=== PATIENT | male | born 1950 | race Caucasian/White ===

== ENCOUNTER 2023-11-10 11:46 | Inpatient (IN) | payer MEDICARE ==
[~2023-11-10] VITALS: Ht 180.3 cm; Wt 107.3 kg
[2023-11-10 12:46] LABS: BASOPHILS % (AUTO) 0.7 % (0-1); EOSINOPHILS # (AUTO) 0.1 X10'3 (0-0.9); HEMATOCRIT 43.3 % (42.0-52.0); HEMOGLOBIN 14.6 g/dl (14.0-17.9); LYMPHOCYTES # (AUTO) 1.4 X10'3 (1.1-4.8); LYMPHOCYTES % (AUTO) 23.3 % (21-51); MEAN CORPUSCULAR HEMOGLOBIN 29.9 PG (27.0-31.0); MEAN CORPUSCULAR HGB CONC 33.7 g/dL (33.0-36.5); MEAN CORPUSCULAR VOLUME 88.8 FL (78-98); MEAN PLATELET VOLUME 8.6 FL (7.4-10.4); MONOCYTES # (AUTO) 0.2 X10'3 (0-0.9); MONOCYTES % (AUTO) 3.8 % (2-12); NEUTROPHILS # (AUTO) 4.3 X10'3 (1.8-7.7); NEUTROPHILS % (AUTO) 70.2 % (42-75); PLATELET COUNT 156 X10'3 (140-440); RED BLOOD COUNT 4.88 X10'6 (4.70-6.10); RED CELL DISTRIBUTION WIDTH 13.5 % (11.5-14.5); WHITE BLOOD COUNT 6.2 X10'3 (4.5-11.0)
[2023-11-10 13:10] LABS: GLUCOSE 207 MG/DL (70-104); SODIUM 139 MMOL/L (135-145)
[2023-11-10 13:11] LABS: ALBUMIN 3.6 G/DL (3.4-5.0); ANION GAP 9 (8-16); BLOOD UREA NITROGEN 23 MG/DL (7-18); BUN/CREATININE RATIO 17.7 (10.0-20.0); CALCIUM 8.5 MG/DL (8.5-10.1); CHLORIDE 102 MMOL/L (99-107); POTASSIUM 3.6 MMOL/L (3.5-5.1); PRO BRAIN NATRIURETIC PEPTIDE 159 PG/ML (0-125); TOTAL CARBON DIOXIDE 28.4 MMOL/L (24-32); eCRCL 55 ML/MIN; eGFR 54 ML/MIN
[2023-11-10] MEDS ORDERED: IRBE150T51 PO (16:47)
[2023-11-10] MEDS ORDERED: ACYC-129 PO ×2 (16:48→16:49)
[2023-11-10] MEDS ORDERED: acetaminophen 325mg tablet PO PRN (16:50)
[2023-11-10] MEDS ORDERED: magnesium hydroxide 30ml (MOM) UD suspension PO PRN (16:50)
[2023-11-10] MEDS ORDERED: FLO0.4C PO (16:50)
[2023-11-10] MEDS ORDERED: ondansetron/PF 4mg/2ml inj IV PRN (16:50)
[2023-11-10] MEDS ORDERED: magnesium 4gm in 100ml NS 100 ML IV PRN (16:50)
[2023-11-10] MEDS ORDERED: magnesium Cl slow-release 64mg tablet PO PRN (16:50)
[2023-11-10] MEDS ORDERED: magnesium 2GM in 50ml NS 50 ML IV PRN (16:50)
[2023-11-10] MEDS ORDERED: potassium Cl 20 mEq SR tablet PO PRN ×2 (16:50)
[2023-11-10] MEDS ORDERED: mag hydrox/Alum hydrox/simeth 30ml oral suspension PO PRN (16:50)
[2023-11-10] MEDS ORDERED: nitroGLYCERIN 0.4mg SUBLingual tab SL PRN ×2 (16:50→16:55)
[2023-11-10] MEDS ORDERED: METF-900 PO (16:50)
[2023-11-10] MEDS ORDERED: morphine 2 MG/ML inj. syringe IV PRN (16:50)
[2023-11-10] MEDS ORDERED: potassium Cl 40MEQ/1/2NS 520ml 520 ML IV PRN (16:50)
[2023-11-10] MEDS ORDERED: DUTA0.5C40 PO (16:51)
[2023-11-10] MEDS ORDERED: ATOR40TA PO (16:51)
[2023-11-10] MEDS ORDERED: metoprolol tartrate 1mg/ml inj IV PRN (16:55)
[2023-11-10] MEDS ORDERED: aminophylline 250mg/10ml inj. IV PRN (16:55)
[2023-11-10] MEDS: normal saline 1000ml 1,000 ML IV SCH (17:10)
[2023-11-10] MEDS: aspirin 325mg tablet, delayed-release (Ecotrin) PO ONE (17:10)
[2023-11-10] MEDS: docusate sod 100mg capsule PO SCH (19:59)
[2023-11-10] MEDS: K and/or MAG REPLACEMENT MC SCH (20:00)
[2023-11-10] MEDS: heparin, porcine 5000 units/ml vial SQ SCH (20:00)
[2023-11-10] MEDS: losartan 50mg tablet PO SCH (20:22)
[2023-11-10] MEDS: tamsulosin 0.4mg capsule PO SCH (20:22)
[2023-11-10 20:33] LABS: BILIRUBIN,URINE NEGATIVE (Neg); CLARITY,URINE CLEAR (Clear); COLOR,URINE STRAW (Yellow); GLUCOSE, URINE NEGATIVE (Neg); KETONES,URINE NEGATIVE (Neg); LEUKOCYTE ESTERASE ,URINE NEGATIVE (Neg); NITRITES, URINE NEGATIVE (Neg); OCCULT BLOOD,URINE NEGATIVE (Neg); PH,URINE 5.5 (4.8-8.0); PROTEIN,URINE NEGATIVE (Neg); UROBILINOGEN,URINE 0.2 E.U/dL (0.2-1.0)
[2023-11-10 20:44] LABS: UA COLLECTION TYPE VOIDED
[2023-11-10 22:00] VITALS: BP 114/46; PULSE 60; RESP 13; TEMP 97; O2SAT 97
[2023-11-10 23:20] VITALS: RESP 12; O2SAT 94
[2023-11-11] VITALS (9 sets, daily range): BP systolic 123–147; BP diastolic 50–75; PULSE 58–86; RESP 14–20; TEMP 97.9–98.4; O2SAT 96–98
[2023-11-11 06:00] LABS: BASOPHILS % (AUTO) 0.5 % (0-1); EOSINOPHILS # (AUTO) 0.1 X10'3 (0-0.9); EOSINOPHILS % (AUTO) 2.4 % (0-6); HEMATOCRIT 42.3 % (42.0-52.0); HEMOGLOBIN 14.4 g/dl (14.0-17.9); LYMPHOCYTES # (AUTO) 1.3 X10'3 (1.1-4.8); LYMPHOCYTES % (AUTO) 23.3 % (21-51); MEAN CORPUSCULAR HEMOGLOBIN 29.9 PG (27.0-31.0); MEAN CORPUSCULAR HGB CONC 33.9 g/dL (33.0-36.5); MEAN PLATELET VOLUME 8.4 FL (7.4-10.4); MONOCYTES # (AUTO) 0.5 X10'3 (0-0.9); MONOCYTES % (AUTO) 9.3 % (2-12); NEUTROPHILS # (AUTO) 3.7 X10'3 (1.8-7.7); NEUTROPHILS % (AUTO) 64.5 % (42-75); PLATELET COUNT 150 X10'3 (140-440); RED BLOOD COUNT 4.81 X10'6 (4.70-6.10); RED CELL DISTRIBUTION WIDTH 13.6 % (11.5-14.5); WHITE BLOOD COUNT 5.7 X10'3 (4.5-11.0)
[2023-11-11 06:23] LABS: ALANINE AMINOTRANSFERASE 35 U/L (12-78); ALBUMIN 3.4 G/DL (3.4-5.0); ALBUMIN/GLOBULIN RATIO 1.2 (1.1-1.5); ALKALINE PHOSPHATASE 69 IU/L (46-116); ANION GAP 8 (8-16); ASPARTATE AMINO TRANSFERASE 7 U/L (10-37); BILIRUBIN,TOTAL 0.5 MG/DL (0.1-1.0); BLOOD UREA NITROGEN 17 MG/DL (7-18); BUN/CREATININE RATIO 14.5 (10.0-20.0); CALCIUM 8.5 MG/DL (8.5-10.1); CHLORIDE 107 MMOL/L (99-107); CHOL/HDL RATIO 2.7 (0.00-4.99); CHOLESTEROL 131 MG/DL (0-200); CREATININE 1.17 MG/DL (0.60-1.10); GLUCOSE 107 MG/DL (70-104); HDL CHOLESTEROL 49 MG/DL (35-60); LDL CHOLESTEROL 67 MG/DL (50-100); POTASSIUM 3.8 MMOL/L (3.5-5.1); SODIUM 141 MMOL/L (135-145); TOTAL CARBON DIOXIDE 25.8 MMOL/L (24-32); TOTAL PROTEIN 6.3 G/DL (6.4-8.2); TRIGLYCERIDES 129 MG/DL (20-135); eCRCL 61 ML/MIN; eGFR 61 ML/MIN
[2023-11-11] MEDS: atorvastatin 20mg tablet PO SCH (07:31)
[2023-11-11] MEDS: regadenoson 0.4mg/5ml syringe IV PRN (09:00)
[2023-11-11] MEDS ORDERED: PANT-47 PO (11:21)
[2023-11-12 12:25] LABS: HBSAG SCREEN Negative (Negative); HEP B CORE AB, IGM Negative (Negative); HEP B CORE AB, TOT Negative (Negative)
== END 2023-11-11 13:00 | disposition home or self-care (01) | DRG 391 ==
LOC: ER 11:46 → ED HOLD 16:43 → UNDOADMIN 16:46 → ED HOLD 16:46 → PCU 3S 21:50
PROVIDERS: ADMIT Family Medicine; ATTEND Family Medicine
PROC: 4A02XM4 Measurement of Cardiac Total Activity, External Approach (ICD-10-PCS; principal; 2023-11-11)
PROC: 3E033HZ Introduction of Radioactive Substance into Peripheral Vein, Percutaneous Approach (ICD-10-PCS; 2023-11-11)
DX: K21.9 Gastro-esophageal reflux disease without esophagitis (principal); N17.0 Acute kidney failure with tubular necrosis; I20.0 Unstable angina; I12.9 Hypertensive chronic kidney disease with stage 1 through stage 4 chronic kidney disease, or unspecified chronic kidney disease; E78.00 Pure hypercholesterolemia, unspecified; E11.22 Type 2 diabetes mellitus with diabetic chronic kidney disease; N18.9 Chronic kidney disease, unspecified; N40.0 Benign prostatic hyperplasia without lower urinary tract symptoms; Z79.84 Long term (current) use of oral hypoglycemic drugs; Z79.899 Other long term (current) drug therapy
CPT/HCPCS: 36415; 71045; 78452; 80048; 80053; 80061; 81003; 83036; 83735; 83880; 84484; 85025; 86704; 86705; 86885; 86900; 86901; 87081; 87340; 93005; 93017; 93306; 99285; A9500; G0378; J1644; J2785; J7030

== ENCOUNTER 2025-04-05 09:30 | Outpatient (CLI) | payer MEDICARE ==
[~2025-04-05 09:30] MED LIST: ACYC-129 PO; ATOR40TA PO; DUTA0.5C40 PO; FLO0.4C PO; IRBE150T51 PO; METF-900 PO; PANT-47 PO
--- NOTE | 2025-04-06 09:36 | CONSULTATION ---
DATE OF CONSULTATION: 04/05/2025 DICTATING PHYSICIAN: Chiqui Ca M.S., [facility]-CHIEF INTERNAL AUDITOR MODIFIED BARIUM SWALLOW STUDY REPORT REFERRING PHYSICIAN: Luiza Prakash MD. HISTORY OF PRESENT ILLNESS: The patient is a 75-year-old male and consents to this evaluation. In history obtained from the patient and medical records, the patient reports symptoms of dysphagia including vocal hoarseness and difficulty swallowing. He feels that his throat is restricted as he is swallowing. He reports constant congestion in his throat and he has a hard time clearing his throat in the middle of the night to the point where he has to sit up and have some water and focus on his breathing. The patient reports that when he has cold beverages, it leads to hiccups and that he often coughs on liquids. The patient went to the hospital in 10/2023 due to having chest pains and it was found that he had esophagitis. He reports that he has poor kidney function and so he cannot take reflux medications. He had a barium swallow study at [facility] approximately a year ago with no abnormalities found. CURRENT DIET: In terms of caffeine, the patient has 2-3 cups of coffee and 1 glass of iced tea on a daily basis. He does not utilize tobacco products. In terms of alcohol, he has 3 small drinks of bourbon in the evening. He rarely consumes chocolate or dairy products with the exception of cottage cheese daily. A typical breakfast consists of 2 hard-boiled eggs. He does not snack in the morning. A typical lunch is 2 pieces of sourdough toast with butter, peanut butter, cottage cheese, and then tortilla chips and iced tea. He rarely snacks in the afternoon. Dinner is eaten at 7 p.m. and is typically boiled pork or chicken with vegetables. He may have potatoes included 2-3 times a week in that meal. He then has a dessert shortly after dinner of pumpkin pie or perhaps ice cream and goes to bed at 9 p.m. MEDICATIONS: Acyclovir 200 mg 1 capsule once daily orally, atorvastatin 40 mg 1 tablet once daily orally, Avodart 0.5 mg 1 tablet daily orally, irbesartan 150 mg 1 tablet twice daily orally, metformin 500 mg ER 1 tablet twice daily orally, Pepcid 40 mg 1 tablet p.o. at bedtime, tamsulosin 0.4 mg 1 capsule once daily orally. PARAMETERS: The patient is seated in a lateral 90-degree view and administered the usual protocol of thin and nectar thick liquids, pureed and solid consistencies, as well as self-regulated boluses of thin liquids from a cup. RESULTS: In the oral stage of the swallow lingual strength is within functional limits and there is no oral residue noted after the tail of the bolus passes. In the pharyngeal stage of the swallow, tongue base retraction is mildly reduced. Anterior movement of the posterior pharyngeal wall is observed. Swallow initiation is delayed to the level of the pyriform for 1 mL, 3 mL and self-regulated boluses of thin liquids from a cup and is within functional limits for the other bolus sizes and consistencies. Swallow initiation is triggered by a cranial nerve 9 at the faucial arches and so due to this delayed swallow initiation for thin liquid boluses, neurological reasons cannot be ruled out. Elevation of the hyothyroid complex is accomplished with full range of motion for epiglottic inversion and anterior and superior movement of the hyoid. There is a mild pharyngeal residue noted at the level of the vallecula. PES opening is within functional limits. In terms of airway safety, the patient demonstrated with penetration for the 1 mL and self-regulated bolus of the liquid from a cup. ANTERIOR-POSTERIOR VIEW: In the AP plane, the bolus split symmetrically between the pyriform sinuses and there is proximal movement of the boluses to the level of the mid sternum. IMPRESSION: The patient demonstrates what appears to be a mild pharyngoesophageal stage swallowing disorder characterized by reduced tongue base retraction, delayed swallow initiation, penetration of the 1 mL and self-regulated bolus of the thin liquid from a cup and proximal movement of the boluses in the AP view. DIAGNOSES: R13.14 dysphagia pharyngoesophageal phase, K21.9, gastroesophageal reflux disease. PATIENT EDUCATION: Immediately following modified barium swallow study, the patient was able to view the results. The normal anatomy of the swallowing mechanism was revealed. The patient was able to see how the current status of the swallowing mechanism decreases his ability to swallow normally. He was educated on the recommendation for speech therapy to strengthen the muscles involved in swallowing and agreed to participate at this time. He was educated on the effortful swallow exercise to begin today. He was also educated on dietary modifications for laryngopharyngeal reflux disease as well as trying to time his dinner earlier in the day to allow more time for food to digest before laying down at night. RECOMMENDATIONS: It is recommended the patient receive swallowing therapy 1 time weekly for 12 weeks to improve the strength of the swallowing musculature to ensure airway safety protection and prevent aspiration. It is recommended that the patient follow the dietary modifications for laryngopharyngeal reflux disease. LONG-TERM GOALS: The patient will maintain adequate hydration/nutrition with optimum safety and efficiency of swallow function on p.o. intake with overt signs and symptoms of aspiration decreased to once weekly for the highest possible diet level. PROGNOSIS: Prognosis for the patient is good in terms of patient motivation and willingness to learn. FUNCTIONAL ORAL INTAKE: The FOIS was administered to establish and document a change in the functional eating activities of this patient over time. This is a 7-point scale with 1 indicating no oral intake and totally tube dependent, and 7 indicating total oral intake with no restrictions. This patient received a 6 which indicates he has a total oral diet with multiple consistencies without special preparation but with specific food limitations and precautions. G-CODE: [id number]. Thank you very much for asking me to participate in the care of this kind patient. Should you have any questions regarding this evaluation or recommendations, please do not hesitate to contact me at [phone]. During this examination, 2.3 minutes of fluoroscopy time and 22.15 CAK mGy were utilized. Chiqui Ca M.S., [employer] INTERNAL AUDITOR TID: [id number] RECEIPT: [id number] BRYN/TRE WILDE
== END 2025-04-05 23:59 | disposition home or self-care (01) ==
LOC: RAD 09:30
PROVIDERS: ATTEND Internal Medicine Endocrinology, Diabetes & Metabolism
DX: K21.9 Gastro-esophageal reflux disease without esophagitis (principal); R13.12 Dysphagia, oropharyngeal phase; R05.9 Cough, unspecified; Z79.84 Long term (current) use of oral hypoglycemic drugs; Z79.899 Other long term (current) drug therapy; Z79.624 Long term (current) use of inhibitors of nucleotide synthesis
CPT/HCPCS: 74230